=== PATIENT | male | born 1960 | race Caucasian/White ===

== ENCOUNTER → 2023-10-23 11:56 | Outpatient (REF) | payer OTHER, SELFPAY ==
[2023-10-23 13:10] LABS: Blood Urea Nitrogen 17 mg/dl (9-20)
== END ==
LOC: REG 11:56
PROVIDERS: ATTENDING PHYSICIAN Specialist; FAMILY PHYSICIAN Family Medicine
DX: R63.4 Abnormal weight loss (principal); R11.0 Nausea
CPT/HCPCS: 36415; 82565; 84520

== ENCOUNTER → 2023-11-19 07:41 | Outpatient (REF) | payer OTHER, SELFPAY | LOC: RAD 07:41 | PROVIDERS: ATTENDING PHYSICIAN Specialist; FAMILY PHYSICIAN Family Medicine | DX: R63.4 Abnormal weight loss (principal) | CPT/HCPCS: 74177; Q9967 ==

== ENCOUNTER → 2024-01-30 07:52 | Outpatient (REF) | payer OTHER, SELFPAY | LOC: RAD 07:52 | PROVIDERS: ATTENDING PHYSICIAN Specialist; FAMILY PHYSICIAN Family Medicine | DX: Z96.652 Presence of left artificial knee joint (principal) | CPT/HCPCS: 78315; A9503 ==

== ENCOUNTER 2024-04-28 09:28 | Inpatient (IN) | payer OTHER, SELFPAY ==
--- NOTE | 2024-04-02 08:30 | CM ---
Patient is scheduled for a L TK Revision on 04/28/24. Spoke with patient prior to surgery. Patient had a L TKR at in 2018. Reintroduced role of Orthopedic Navigator. Patient reports that he lives with his in a two story home. There are three
steps to enter (bilateral rails) and a flight of steps to the second floor (right ascending rail). There is a powder room on the first floor. He currently functions independently. He has a cane, shower seat and raised toilet seat. He had VN services
through [facility] after his prior TKR (he was a same day patient. PCP is Abena Harden.
Discussed orthopedic program and post surgical plans. Reviewed anticipated length of stay and that goal is for him to return home at discharge. Also reviewed outpatient PT. Discussed need for rolling walker. patient states that he got rid of the
walker he had. He will obtain one prior to surgery. Patient is in agreement with tentative plan and will go directly to outpatient PT at [facility]. He will have support from his and other family members when he goes home.
Patient will complete online education.
Plan: Orthopedic Navigator will remain available to assist with the care of patient and will reassess discharge needs after surgery.
[2024-04-08 09:47] LABS: Hematocrit 43.3 % (39.0-52.0); Hemoglobin 14.6 g/dL (13.0-18.0); Mean Corp Hgb Conc. 33.7 g/dL (33.0-37.0); Mean Corpuscular Hgb 30.1 pg (27.0-31.0); Mean Corpuscular Volume 89.3 fL (80.0-94.0); Mean Platelet Volume 10.2 fL (7.4-10.4); Platelet Count 176 10^3/uL (130-400); Red Blood Cell Count 4.85 10^6/uL (4.70-6.10); Red Cell Dist. Width 12.8 % (11.5-14.5); White Blood Cell Count 5.1 10^3/uL (4.8-10.8)
[2024-04-08 10:24] VITALS: BMI 27.8
[2024-04-08 10:38] LABS: ALT (SGPT) 31 U/L (0-50); AST (SGOT) 40 U/L (17-59); Albumin 4.4 g/dl (3.5-5.0); Alkaline Phosphatase 54 U/L (38-126); Blood Urea Nitrogen 16 mg/dl (9-20); Calcium 9.4 mg/dl (8.4-10.2); Carbon Dioxide 28 mmol/L (22-30); Chloride 102 mmol/L (98-107); Estimated Creatinine Clearance 105 ml/min; Glucose 75 mg/dl (70-99); Potassium 4.4 mmol/L (3.5-5.1); Sodium 138 mmol/L (135-145); Total Protein 6.5 g/dl (6.3-8.2); eGFR > 60.00
[2024-04-08 10:47] LABS: Glycohemoglobin (HgbA1c) 5.5 % (4.0-5.6)
[2024-04-21 08:56] VITALS: BMI 27.8
[2024-04-28] VITALS (16 sets, daily range): BP systolic 109–133; BP diastolic 67–111; BMI 27.8
[2024-04-28] MEDS: TYLENOL 650 MG PO ×4 (10:50→23:19)
[2024-04-28] MEDS: CELEBREX 200 MG PO (10:50)
[2024-04-28] MEDS: NORMOSOL-R 1000 IV ×2 (10:58→17:25)
--- NOTE | 2024-04-28 13:22 | W.DS.TRANS ---
DC Summary - [employer]
-
Discharge Instructions:
Discharge Diagnosis/Procedures L TKA Revision Dr. Fuller 04/28/24
Diet As tolerated
Activity With Walker
Driving Restrictions No driving
Bathing Restrictions OK to Shower
Other Services PT
Instructions:
Stand-Alone Forms: Total Hip/Knee Replacement D/C
Changes to Home Medications: Yes
Discharge Medications:
DC Medications w/original date entered in [employer]
Androgel 40.5 mg topical DAILY 07/05/18
pitavastatin calcium 4 mg tablet (Livalo) 4 mg PO QPM 07/05/18
Vitamin D3 1 dose PO DAILY 04/21/24
ezetimibe 10 mg tablet 10 mg PO DAILY 04/21/24
fluticasone propionate 50 mcg/actuation nasal spray,suspension 2 spray intranasal QPM 04/21/24
ibuprofen 200 mg tablet (Advil) 400 mg PO Q6H PRN pain 04/21/24
Saccharomyces boulardii 250 mg capsule (Florastor) 250 mg PO BID #1 cap 04/28/24
aspirin 325 mg tablet 325 mg PO DAILY blood clot prevention #1 tab 04/28/24
cefadroxil 500 mg capsule 500 mg PO BID infection prevention #14 caps 04/28/24
celecoxib 200 mg capsule 200 mg PO DAILY anti-inflammatory #14 caps 04/28/24
dexamethasone 4 mg tablet 4 mg PO BID inflammation #6 tabs 04/28/24
docusate sodium 100 mg capsule (Colace) 100 mg PO BID stool softner #1 cap 04/28/24
magnesium hydroxide 400 mg/5 mL oral suspension (Milk of Magnesia) 30 ml PO HS PRN Constipation #1 mL 04/28/24
ondansetron 4 mg disintegrating tablet 4 mg PO Q6H PRN n/v #20 tabs 04/28/24
oxycodone 5 mg tablet 5 mg PO Q6H PRN 1 tab moderate pain, 2 tabs severe pain #30 tabs 04/28/24
pantoprazole 40 mg tablet,delayed release 40 mg PO DAILY Gastrointestinal issue #0 tabs 04/28/24
sennosides 8.6 mg tablet (Senokot) 17.2 mg (2 x 8.6 mg) PO BID laxative #2 tabs 04/28/24
Home Medication Changes
cefadroxil 500 mg capsule 500 mg PO BID infection prevention #14 caps 04/28/24�
celecoxib 200 mg capsule 200 mg PO DAILY anti-inflammatory #14 caps 04/28/24�
dexamethasone 4 mg tablet 4 mg PO BID inflammation #6 tabs 04/28/24�
ondansetron 4 mg disintegrating tablet 4 mg PO Q6H PRN n/v #20 tabs 04/28/24�
oxycodone 5 mg tablet 5 mg PO Q6H PRN 1 tab moderate pain, 2 tabs severe pain #30 tabs 04/28/24�
pantoprazole 40 mg tablet,delayed release 40 mg PO DAILY Gastrointestinal issue #0 tabs 04/28/24�
Pending Results: No
[2024-04-28] MEDS: ROXICODONE 5 MG PO (16:08)
[2024-04-28] MEDS: DILAUDID 0.5 MG IV (17:09)
[2024-04-28] MEDS: ZETIA 10 MG PO (18:02)
[2024-04-28] MEDS: LIPITOR 20 MG PO (18:03)
[2024-04-28] MEDS: ASPIRIN 325 MG PO (18:03)
[2024-04-28] MEDS: PROTONIX 40 MG PO (18:03)
[2024-04-28] MEDS: ROXICODONE 10 MG PO ×2 (19:08→23:20)
[2024-04-28] MEDS: SENOKOT 17.2 MG PO (20:21)
[2024-04-28] MEDS: ANCEF 5 IV (20:22)
[2024-04-28] MEDS: COLACE 100 MG PO (20:22)
[2024-04-28] MEDS: TORADOL 15 MG IV (20:23)
[2024-04-28] MEDS: DECADRON 4 MG PO (20:24)
[2024-04-28] MEDS: BACTROBAN 2% OINTMENT 1 APPLIC NASAL (20:40)
[2024-04-28] MEDS: NEURONTIN 300 MG PO (21:52)
[2024-04-29 03:10] VITALS: BP 125/78
[2024-04-29] MEDS: ANCEF 5 IV (04:08)
[2024-04-29] MEDS: TYLENOL 650 MG PO ×3 (04:08→11:56)
[2024-04-29] MEDS: ROXICODONE 10 MG PO ×3 (04:23→13:04)
[2024-04-29 07:44] VITALS: BP 128/74
[2024-04-29] MEDS: BACTROBAN 2% OINTMENT 1 APPLIC NASAL (08:17)
[2024-04-29] MEDS: CELEBREX 200 MG PO (08:17)
[2024-04-29] MEDS: ZETIA 10 MG PO (08:17)
[2024-04-29] MEDS: PROTONIX 40 MG PO (08:17)
[2024-04-29] MEDS: SENOKOT 17.2 MG PO (08:17)
[2024-04-29] MEDS: COLACE 100 MG PO (08:17)
[2024-04-29] MEDS: ASPIRIN 325 MG PO (08:17)
[2024-04-29] MEDS: TORADOL 15 MG IV (08:17)
[2024-04-29] MEDS: DECADRON 4 MG PO (08:17)
--- NOTE | 2024-04-29 11:01 | CM ---
Addendum entered by Tara Menendez 04/29/24 11:05:
to transport home once discharged.
Original Note:
Patient seen at bedside.
PT in seeing patient.
Patient has a walker to take home at discharge.
IMM signed & placed in chart.
PLAN: Discharge to outpatient therapy ([facility] set up)
[2024-04-29 11:05] VITALS: BP 144/82; PULSE 61; O2SAT 98
--- NOTE | 2024-04-29 11:07 | W.PN.ORTHO ---
Today's Communication / Plan
-
d/c
Assessment
.
Distal Motor Intact: Yes
Dressing:
Clean, dry and intact.
Assessment:
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
Plan
.
Surgery / Date: L TKA Revision Dr. Fuller 04/28/24
DVT Prophylaxis: Aspirin
Activity:
Out of bed.
PT/OT
Discharge Plan: Home w/ Outpatient PT
Subjective
.
.:
Patient resting comfortably.
Vital Signs and Labs
.
Vital Signs and Labs:
Lab Results
04/08/24 06:40
04/08/24 06:40
Temp Pulse Resp BP Pulse Ox
97.3 F 61 20 128/74 99
04/29/24 07:44 04/29/24 07:44 04/29/24 07:44 04/29/24 07:44 04/29/24 07:44
Non-invasive Hgb result: 14.2
Physical Exam
-
HEENT: No pallor, cyanosis, or jaundice. Throat clear.
NECK: Supple. No JVD.
RESPIRATORY: Lungs clear to auscultation.
CVS: S1, S2 normal. RRR.� No murmur, rub or gallop.
ABDOMEN: Soft, non-tender. No distension. BS+/normal.
EXTREMITIES: strength equal, no calf pain with palpation
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 No focal deficits. premium representative grossly intact
[2024-04-29 11:19] VITALS: BP 125/70
[2024-04-29 11:40] VITALS: BP 125/70; PULSE 55; O2SAT 96
== END 2024-04-29 13:45 | disposition home or self-care (01) | DRG 468 ==
LOC: 2 SOUTH 09:28
PROVIDERS: ADMITTING PHYSICIAN Specialist; FAMILY PHYSICIAN Family Medicine
PROC: 0SPD0JZ Removal of Synthetic Substitute from Left Knee Joint, Open Approach (ICD-10-PCS; 2024-04-28)
PROC: 0SRD0J9 Replacement of Left Knee Joint with Synthetic Substitute, Cemented, Open Approach (ICD-10-PCS; 2024-04-28)
DX: T84.033A Mechanical loosening of internal left knee prosthetic joint, initial encounter (principal); I10 Essential (primary) hypertension; I34.0 Nonrheumatic mitral (valve) insufficiency; G40.909 Epilepsy, unspecified, not intractable, without status epilepticus; I70.0 Atherosclerosis of aorta; Y79.2 Prosthetic and other implants, materials and accessory orthopedic devices associated with adverse incidents; M17.0 Bilateral primary osteoarthritis of knee; M51.36 Other intervertebral disc degeneration, lumbar region; K21.9 Gastro-esophageal reflux disease without esophagitis; E78.5 Hyperlipidemia, unspecified; G47.33 Obstructive sleep apnea (adult) (pediatric); Z96.653 Presence of artificial knee joint, bilateral; M25.462 Effusion, left knee; Z79.899 Other long term (current) drug therapy; Z87.891 Personal history of nicotine dependence; Z88.0 Allergy status to penicillin
CPT/HCPCS: 73560; 80053; 83036; 85027; 86850; 86900; 86901; 87070; 93005; 97110; 97116; 97162; 97166; 97530; 97535; C1713; C1762; C1776